=== PATIENT | male | born 1950 | race Caucasian/White ===

== ENCOUNTER 2024-04-24 08:59 | Emergency (ER) | payer MEDICARE | END 2024-04-24 10:05 | disposition home or self-care (01) | LOC: JP.ED 08:59 | DX: G47.00 Insomnia, unspecified (principal); Z79.899 Other long term (current) drug therapy | CPT/HCPCS: 99282 ==

== ENCOUNTER 2025-04-13 13:19 | Emergency (ER) | payer MEDICARE ==
[2025-04-13] MEDS: Diphtheria,Pertussis(Acell),Tetanus Vaccine 0.5 ML Syringe IM ONE (14:18)
== END 2025-04-13 15:40 | disposition home or self-care (01) ==
LOC: JP.ED 13:19
DX: S00.81XA Abrasion of other part of head, initial encounter (principal); Z79.899 Other long term (current) drug therapy; Z23 Encounter for immunization; V17.4XXA Pedal cycle driver injured in collision with fixed or stationary object in traffic accident, initial encounter; Y93.55 Activity, bike riding
CPT/HCPCS: 70450; 70486; 72125; 76377; 90471; 90715; 99283; 99284-25